=== PATIENT | male | born 1940 | race Caucasian/White ===

== ENCOUNTER 2018-06-15 10:04 | Emergency (ER) | payer OTHER ==
[2018-06-15 10:52] LABS: ADD MAN DIFF? NO
[2018-06-15 10:53] LABS: BASOPHILS % 0.4 % (0.0-2.0); EOSINOPHILS # 0.2 10^3/ul (0.0-0.5); HEMATOCRIT 41.8 % (42.0-52.0); HEMOGLOBIN 14.3 g/dl (14.0-18.0); LYMPHOCYTES # 2.8 10^3/ul (0.8-2.9); MEAN CORPUSCULAR HEMOGLOBIN 30.2 pg (29.0-33.0); MEAN CORPUSCULAR HGB CONC 34.2 g/dl (32.0-37.0); MEAN CORPUSCULAR VOLUME 88.2 fl (82.0-101.0); MEAN PLATELET VOLUME 9.8 fl (7.4-10.4); MONOCYTE # 0.5 10^3/ul (0.3-0.9); MONOCYTES % 6.4 % (0.0-11.0); NEUTROPHIL # 4.8 10^3/ul (1.6-7.5); PLATELET COUNT 208 10^3/UL (140-415); RED BLOOD COUNT 4.74 10^6/ul (4.70-6.10); RED CELL DISTRIBUTION WIDTH 13.1 % (11.5-14.5)
[2018-06-15 10:53] LABS: WHITE BLOOD COUNT 8.3 10^3/ul (4.8-10.8)
[2018-06-15] MEDS: ASPIRIN 81 MG TAB PO (11:33)
[2018-06-15] MEDS: BELLADONNA/PHENOBARBITAL TAB PO (11:33)
[2018-06-15] MEDS: FAMOTIDINE 20 MG TAB PO (11:33)
[2018-06-15] MEDS: SOD CHLORIDE 0.9% 500 ML IV (11:34)
[2018-06-15] MEDS: LIDOCAINE/MYLANTA 40 ML BTL PO (11:35)
[2018-06-15] MEDS: ONDANSETRON 4 MG INJ IV (11:35)
[2018-06-15] MEDS: morphine 4 MG/ML VIAL IV (11:37)
[2018-06-15] MEDS: ENALAPRILAT 1.25 MG INJ IV (11:39)
[2018-06-15 12:05] LABS: ALANINE AMINOTRANSFERASE 22 IU/L (13-69); ALBUMIN 3.8 g/dl (3.3-4.9); ALBUMIN/GLOBULIN RATIO 0.92; ALKALINE PHOSPHATASE 137 IU/L (42-121); ANION GAP 15 (8-16); ASPARTATE AMINO TRANSFERASE 29 IU/L (15-46); BILIRUBIN,INDIRECT 0.4 mg/dl (0-1.1); BILIRUBIN,TOTAL 0.4 mg/dl (0.2-1.3); BLOOD UREA NITROGEN 11 mg/dl (7-20); CALCIUM 9.5 mg/dl (8.4-10.2); CARBON DIOXIDE 29 mmol/L (21-31); CHLORIDE 103 mmol/L (97-110); CREATININE 0.72 mg/dl (0.61-1.24); GLUCOSE 82 mg/dl (70-220); LIPASE 67 U/L (23-300); POTASSIUM 4.1 mmol/L (3.5-5.1); SODIUM 143 mmol/L (135-144); TOTAL PROTEIN 7.9 g/dl (6.1-8.1)
[2018-06-15 12:17] LABS: B-TYPE NATRIURETIC PEPTIDE 277 PG/ML (0-450); TROPONIN-I 0.117 ng/ml (0.000-0.120)
== END 2018-06-15 13:01 | disposition home or self-care (01) ==
LOC: E/R 10:04
DX: R07.9 Chest pain, unspecified (principal); G89.4 Chronic pain syndrome; K29.00 Acute gastritis without bleeding; I10 Essential (primary) hypertension; Z87.891 Personal history of nicotine dependence
CPT/HCPCS: 36415; 71045; 80053; 83690; 83880; 84484; 85025; 93005; 96374; 96375; 99285-25

== ENCOUNTER 2018-09-24 00:58 | Observation (INO) | payer OTHER ==
[2018-09-24] MEDS: ONDANSETRON 4 MG INJ IV (01:30)
[2018-09-24] MEDS: morphine 4 MG/ML VIAL IV (01:30)
[2018-09-24 01:32] LABS: ADD MAN DIFF? NO
[2018-09-24 01:34] LABS: WHITE BLOOD COUNT 8.3 10^3/ul (4.8-10.8)
[2018-09-24 01:34] LABS: BASOPHILS % 0.4 % (0.0-2.0); EOSINOPHILS # 0.2 10^3/ul (0.0-0.5); EOSINOPHILS % 2.5 % (0.0-7.0); HEMATOCRIT 41.8 % (42.0-52.0); HEMOGLOBIN 14.5 g/dl (14.0-18.0); LYMPHOCYTES # 2.3 10^3/ul (0.8-2.9); MEAN CORPUSCULAR HEMOGLOBIN 30.4 pg (29.0-33.0); MEAN CORPUSCULAR HGB CONC 34.7 g/dl (32.0-37.0); MEAN CORPUSCULAR VOLUME 87.6 fl (82.0-101.0); MEAN PLATELET VOLUME 9.6 fl (7.4-10.4); MONOCYTE # 0.6 10^3/ul (0.3-0.9); MONOCYTES % 7.5 % (0.0-11.0); NEUTROPHIL # 5.1 10^3/ul (1.6-7.5); NEUTROPHILS % 61.4 % (39.0-77.0); PLATELET COUNT 180 10^3/UL (140-415); RED BLOOD COUNT 4.77 10^6/ul (4.70-6.10); RED CELL DISTRIBUTION WIDTH 12.6 % (11.5-14.5)
[2018-09-24 02:29] LABS: ALANINE AMINOTRANSFERASE 13 IU/L (13-69); ALBUMIN 4.5 g/dl (3.3-4.9); ALBUMIN/GLOBULIN RATIO 1.25; ALKALINE PHOSPHATASE 136 IU/L (42-121); ANION GAP 14 (5-13); ASPARTATE AMINO TRANSFERASE 25 IU/L (15-46); BILIRUBIN,INDIRECT 0.3 mg/dl (0-1.1); BILIRUBIN,TOTAL 0.3 mg/dl (0.2-1.3); BLOOD UREA NITROGEN 17 mg/dl (7-20); CALCIUM 9.5 mg/dl (8.4-10.2); CARBON DIOXIDE 25 mmol/L (21-31); CHLORIDE 103 mmol/L (97-110); CREATININE 0.91 mg/dl (0.61-1.24); GLUCOSE 138 mg/dl (70-220); POTASSIUM 3.8 mmol/L (3.5-5.1); SODIUM 142 mmol/L (135-144); TOTAL PROTEIN 8.1 g/dl (6.1-8.1)
[2018-09-24 02:41] LABS: B-TYPE NATRIURETIC PEPTIDE 661 PG/ML (0-450); TROPONIN-I 0.039 ng/ml (0.000-0.120)
[2018-09-24] MEDS: FUROSEMIDE 40 MG INJ IV (05:27)
[2018-09-24] MEDS: ASPIRIN 81 MG TAB PO ×2 (05:27→12:37)
[2018-09-24] MEDS ORDERED: NITROGLYCERIN (SL) 0.4 MG TAB SL (05:30)
[2018-09-24] MEDS ORDERED: ONDANSETRON 4 MG INJ IV (05:30)
[2018-09-24] MEDS ORDERED: HYDROCODONE/APAP (5/325) TAB PO (05:30)
[2018-09-24] MEDS ORDERED: hydrALAzine 20 MG INJ IV (05:30)
[2018-09-24] MEDS ORDERED: ACETAMINOPHEN 325 MG TAB PO (05:30)
[2018-09-24] MEDS ORDERED: NACL 0.9% 3 ML SYG IV (05:30)
[2018-09-24 06:50] LABS: CREATINE KINASE 154 IU/L (23-200)
[2018-09-24 07:03] LABS: CK INDEX 6.1
[2018-09-24 07:14] LABS: CK-MB 9.33 ng/ml (0.0-2.4)
[2018-09-24 07:16] LABS: TROPONIN-I 0.993 ng/ml (0.000-0.120)
[2018-09-24] MEDS: ENOXAPARIN 80 MG/0.8 ML SYG SC (08:27)
[2018-09-24] MEDS ORDERED: ENOXAPARIN 40 MG/0.4 ML SYG SC (09:00)
[2018-09-24 11:48] LABS: CREATINE KINASE 189 IU/L (23-200)
[2018-09-24 12:01] LABS: CK INDEX 6.6
[2018-09-24] MEDS: FAMOTIDINE 20 MG TAB PO ×2 (12:39→23:17)
[2018-09-24] MEDS: METOPROLOL 25 MG TAB PO (12:41)
[2018-09-24] MEDS ORDERED: LOSARTAN 50 MG TAB (13:09)
[2018-09-24] MEDS: LOSARTAN 50 MG TAB PO (13:19)
[2018-09-24] MEDS ORDERED: LOSARTAN 25 MG TAB PO (13:30)
[2018-09-24] MEDS ORDERED: HEPARIN 1000 UNITS/ML 10 ML INJ (14:33)
[2018-09-24] MEDS ORDERED: LIDOCAINE 1% (MDV) 20 ML INJ (14:33)
[2018-09-24] MEDS ORDERED: IODIXANOL LOCM 100 ML BTL (14:33)
[2018-09-24] MEDS ORDERED: FENTAnyl 50 MCG/ML VIAL (14:34)
[2018-09-24] MEDS ORDERED: VERAPAMIL 5 MG INJ (14:34)
[2018-09-24] MEDS ORDERED: MIDAZOLAM 1 MG/ML 2 ML INJ (14:34)
[2018-09-24] MEDS ORDERED: NITROGLYCERIN (IC) 100 MCG/ML INJ (14:34)
[2018-09-24] MEDS ORDERED: BIVALIRUDIN 250MG /NS 50 ML 50 ML IVPB ×2 (15:11→15:56)
[2018-09-24] MEDS ORDERED: IOHEXOL 350MG/ML 50 ML BTL (15:13)
[2018-09-24] MEDS ORDERED: TICAGRELOR 90 MG TABLET (15:14)
[2018-09-24] MEDS ORDERED: hydrALAzine 20 MG INJ (15:18)
[2018-09-24] MEDS ORDERED: niCARdipine 25 MG INJ (15:32)
[2018-09-24] MEDS: SOD CHLORIDE 0.9% 1,000 ML IV (16:55)
[2018-09-24] MEDS ORDERED: ATORVASTATIN 40 MG TAB PO (21:00)
[2018-09-24] MEDS ORDERED: ENOXAPARIN 80 MG/0.8 ML SYG SC (21:00)
[2018-09-24] MEDS: ATORVASTATIN 80 MG TAB PO (23:17)
[2018-09-24] MEDS: METOPROLOL 50 MG TAB PO (23:18)
[2018-09-24] MEDS: HYDROCODONE/APAP (5/325) TAB PO (23:18)
[2018-09-24] MEDS: LOSARTAN 25 MG TAB PO (23:19)
[2018-09-24] MEDS: TICAGRELOR 90 MG TABLET PO (23:20)
[2018-09-25 04:56] LABS: ADD MAN DIFF? NO
[2018-09-25 05:00] LABS: BASOPHILS % 0.3 % (0.0-2.0); EOSINOPHILS # 0.2 10^3/ul (0.0-0.5); EOSINOPHILS % 1.9 % (0.0-7.0); HEMATOCRIT 36.8 % (42.0-52.0); HEMOGLOBIN 12.7 g/dl (14.0-18.0); LYMPHOCYTES % 24.9 % (15.0-51.0); MEAN CORPUSCULAR HEMOGLOBIN 30.4 pg (29.0-33.0); MEAN CORPUSCULAR HGB CONC 34.5 g/dl (32.0-37.0); MEAN PLATELET VOLUME 9.8 fl (7.4-10.4); MONOCYTE # 0.6 10^3/ul (0.3-0.9); MONOCYTES % 7.9 % (0.0-11.0); NEUTROPHIL # 5.2 10^3/ul (1.6-7.5); NEUTROPHILS % 64.7 % (39.0-77.0); PLATELET COUNT 178 10^3/UL (140-415); RED BLOOD COUNT 4.18 10^6/ul (4.70-6.10); RED CELL DISTRIBUTION WIDTH 12.4 % (11.5-14.5)
[2018-09-25 05:07] LABS: HEMOGLOBIN A1C 5.5 % (0-5.9)
[2018-09-25 05:26] LABS: ALANINE AMINOTRANSFERASE 17 IU/L (13-69); ALBUMIN 3.6 g/dl (3.3-4.9); ALBUMIN/GLOBULIN RATIO 1.02; ALKALINE PHOSPHATASE 94 IU/L (42-121); ANION GAP 10 (5-13); ASPARTATE AMINO TRANSFERASE 34 IU/L (15-46); BILIRUBIN,INDIRECT 0.5 mg/dl (0-1.1); BILIRUBIN,TOTAL 0.5 mg/dl (0.2-1.3); BLOOD UREA NITROGEN 15 mg/dl (7-20); CALCIUM 9.2 mg/dl (8.4-10.2); CARBON DIOXIDE 26 mmol/L (21-31); CHLORIDE 106 mmol/L (97-110); CHOL/HDL RATIO 6.7 RATIO; CHOLESTEROL 168 mg/dl (100-200); CREATININE 0.82 mg/dl (0.61-1.24); GLUCOSE 104 mg/dl (70-220); HDL CHOLESTEROL 25 mg/dl (31-75); LDL CHOLESTEROL,CALCULATED 114 mg/dl; POTASSIUM 4.2 mmol/L (3.5-5.1); SODIUM 142 mmol/L (135-144); TOTAL PROTEIN 7.1 g/dl (6.1-8.1); TRIGLYCERIDES 145 mg/dl (0-149)
[2018-09-25] MEDS: ASPIRIN (EC) 81 MG TAB PO (09:45)
[2018-09-25] MEDS: FAMOTIDINE 20 MG TAB PO (09:45)
[2018-09-25] MEDS: LOSARTAN 25 MG TAB PO (09:46)
[2018-09-25] MEDS: TICAGRELOR 90 MG TABLET PO (09:47)
[2018-09-25] MEDS: FUROSEMIDE 20 MG INJ IV (12:51)
[2018-09-26] MEDS ORDERED: METOPROLOL (XL) 50 MG TAB PO (09:00)
[2018-09-26] MEDS ORDERED: LOSARTAN 25 MG TAB PO (09:00)
== END 2018-09-25 15:00 | disposition home or self-care (01) ==
LOC: E/R 00:58 → ICU 02:59
DX: I21.4 Non-ST elevation (NSTEMI) myocardial infarction (principal); I25.10 Atherosclerotic heart disease of native coronary artery without angina pectoris; I10 Essential (primary) hypertension; E78.5 Hyperlipidemia, unspecified
CPT/HCPCS: 36415; 71045; 80053; 80061; 82550; 82553; 83036; 83735; 83880; 84443; 84484; 85025; 93005; 93306; 93458; 96374; 96375; 99217; 99285-25

== ENCOUNTER 2018-12-14 12:25 | Inpatient (IN) | payer OTHER ==
[2018-12-14] MEDS: FUROSEMIDE 40 MG INJ IV (15:42)
[2018-12-14] MEDS: ASPIRIN 81 MG TAB PO (15:42)
[2018-12-14] MEDS: NITROGLYCERIN 2% 1 GM OINT PKT TD (15:42)
[2018-12-14 15:52] LABS: ADD MAN DIFF? NO; BASOPHILS % 0.3 % (0.0-2.0); EOSINOPHILS # 0.2 10^3/ul (0.0-0.5); EOSINOPHILS % 2.3 % (0.0-7.0); HEMATOCRIT 42.4 % (42.0-52.0); HEMOGLOBIN 14.5 g/dl (14.0-18.0); LYMPHOCYTES # 3.4 10^3/ul (0.8-2.9); LYMPHOCYTES % 42.1 % (15.0-51.0); MEAN CORPUSCULAR HEMOGLOBIN 29.7 pg (29.0-33.0); MEAN CORPUSCULAR HGB CONC 34.2 g/dl (32.0-37.0); MEAN CORPUSCULAR VOLUME 86.9 fl (82.0-101.0); MEAN PLATELET VOLUME 9.2 fl (7.4-10.4); MONOCYTE # 0.6 10^3/ul (0.3-0.9); MONOCYTES % 7.8 % (0.0-11.0); NEUTROPHIL # 3.8 10^3/ul (1.6-7.5); NEUTROPHILS % 47.2 % (39.0-77.0); PLATELET COUNT 238 10^3/UL (140-415); RED BLOOD COUNT 4.88 10^6/ul (4.70-6.10); RED CELL DISTRIBUTION WIDTH 12.9 % (11.5-14.5)
[2018-12-14 16:11] LABS: ANION GAP 11 (5-13); BLOOD UREA NITROGEN 12 mg/dl (7-20); CALCIUM 9.4 mg/dl (8.4-10.2); CARBON DIOXIDE 26 mmol/L (21-31); CHLORIDE 106 mmol/L (97-110); GLUCOSE 90 mg/dl (70-220); POTASSIUM 3.7 mmol/L (3.5-5.1); SODIUM 143 mmol/L (135-144)
[2018-12-14 16:23] LABS: B-TYPE NATRIURETIC PEPTIDE 328 PG/ML (0-450); TROPONIN-I < 0.012 ng/ml (0.000-0.120)
[2018-12-14] MEDS ORDERED: ACETAMINOPHEN 325 MG TAB PO (18:00)
[2018-12-14] MEDS ORDERED: ONDANSETRON 4 MG INJ IV ×2 (18:00→18:30)
[2018-12-14 18:29] LABS: INR 1.15; PARTIAL THROMBOPLASTIN TIME 31.4 Sec (23.0-35.0); PROTIME 14.8 Sec (11.9-14.9); PT RATIO 1.2
[2018-12-14] MEDS ORDERED: hydrALAzine 20 MG INJ IV (18:30)
[2018-12-14] MEDS ORDERED: MAGNESIUM HYDROXIDE 30ML CUP PO (18:30)
[2018-12-14] MEDS ORDERED: ALBUTEROL/IPRATROPIUM (NEB) 3 ML AMP HHN (18:30)
[2018-12-14] MEDS ORDERED: NITROGLYCERIN (SL) 0.4 MG TAB SL (18:30)
[2018-12-14] MEDS ORDERED: LORAZEPAM 2 MG INJ IV (18:30)
[2018-12-14] MEDS ORDERED: HYDROCODONE/APAP (5/325) TAB PO (18:30)
[2018-12-14] MEDS ORDERED: NACL 0.9% 3 ML SYG IV (18:30)
[2018-12-14] MEDS ORDERED: morphine 2 MG INJ IV (18:30)
[2018-12-14] MEDS ORDERED: DOCUSATE SODIUM 100 MG CAP PO (18:30)
[2018-12-14 18:49] LABS: FREE T4 (FREE THYROXINE) 1.02 ng/dl (0.78-2.44)
[2018-12-14] MEDS ORDERED: TICAGRELOR 90 MG TABLET PO (21:00)
[2018-12-14 22:01] LABS: CK-MB 0.49 ng/ml (0.0-2.4); TROPONIN-I < 0.012 ng/ml (0.000-0.120)
[2018-12-14 22:22] LABS: CK INDEX 0.6; CREATINE KINASE 79 IU/L (23-200)
[2018-12-15] MEDS: ACETAMINOPHEN 325 MG TAB PO ×3 (00:13→20:52)
[2018-12-15] MEDS: HEPARIN 5,000 UNIT/1 ML VIAL SC ×3 (00:18→20:59)
[2018-12-15] MEDS: TICAGRELOR 90 MG TABLET PO ×3 (00:18→20:59)
[2018-12-15 03:31] LABS: CREATINE KINASE 74 IU/L (23-200)
[2018-12-15 03:42] LABS: CK INDEX 0.6; CK-MB 0.43 ng/ml (0.0-2.4); TROPONIN-I < 0.012 ng/ml (0.000-0.120)
[2018-12-15] MEDS: ASPIRIN 81 MG TAB PO (08:41)
[2018-12-15] MEDS: FUROSEMIDE 40 MG INJ IV (08:41)
[2018-12-15 08:50] LABS: ADD MAN DIFF? NO
[2018-12-15 08:59] LABS: BASOPHILS % 0.3 % (0.0-2.0); EOSINOPHILS # 0.1 10^3/ul (0.0-0.5); EOSINOPHILS % 1.3 % (0.0-7.0); LYMPHOCYTES # 2.7 10^3/ul (0.8-2.9); LYMPHOCYTES % 29.8 % (15.0-51.0); MEAN CORPUSCULAR HEMOGLOBIN 29.6 pg (29.0-33.0); MEAN CORPUSCULAR HGB CONC 34.1 g/dl (32.0-37.0); MEAN CORPUSCULAR VOLUME 86.8 fl (82.0-101.0); MEAN PLATELET VOLUME 9.3 fl (7.4-10.4); MONOCYTE # 0.6 10^3/ul (0.3-0.9); MONOCYTES % 6.2 % (0.0-11.0); NEUTROPHIL # 5.6 10^3/ul (1.6-7.5); NEUTROPHILS % 62.1 % (39.0-77.0); PLATELET COUNT 245 10^3/UL (140-415); RED BLOOD COUNT 5.07 10^6/ul (4.70-6.10); RED CELL DISTRIBUTION WIDTH 13.1 % (11.5-14.5)
[2018-12-15] MEDS ORDERED: ASPIRIN (EC) 325 MG TAB PO (09:00)
[2018-12-15 09:27] LABS: ANION GAP 14 (5-13); BLOOD UREA NITROGEN 17 mg/dl (7-20); CALCIUM 9.5 mg/dl (8.4-10.2); CARBON DIOXIDE 27 mmol/L (21-31); CHLORIDE 104 mmol/L (97-110); CREATININE 0.74 mg/dl (0.61-1.24); GLUCOSE 104 mg/dl (70-220); POTASSIUM 3.6 mmol/L (3.5-5.1); SODIUM 145 mmol/L (135-144)
[2018-12-15 09:30] LABS: CHOLESTEROL 188 mg/dl (100-200)
[2018-12-15 09:30] LABS: CHOL/HDL RATIO 6.7 RATIO; HDL CHOLESTEROL 28 mg/dl (31-75); LDL CHOLESTEROL,CALCULATED 115 mg/dl; TRIGLYCERIDES 227 mg/dl (0-149)
[2018-12-15 09:45] LABS: HEMOGLOBIN A1C 5.6 % (0-5.9)
[2018-12-15] MEDS: LOSARTAN 25 MG TAB PO (15:20)
[2018-12-15] MEDS: METOPROLOL (XL) 50 MG TAB PO (15:21)
[2018-12-15] MEDS: ATORVASTATIN 40 MG TAB PO (20:53)
[2018-12-16 07:49] LABS: ADD MAN DIFF? NO
[2018-12-16 07:52] LABS: BASOPHILS % 0.3 % (0.0-2.0); EOSINOPHILS # 0.2 10^3/ul (0.0-0.5); EOSINOPHILS % 2.1 % (0.0-7.0); HEMOGLOBIN 15.7 g/dl (14.0-18.0); LYMPHOCYTES % 31.2 % (15.0-51.0); MEAN CORPUSCULAR HEMOGLOBIN 29.9 pg (29.0-33.0); MEAN CORPUSCULAR HGB CONC 34.1 g/dl (32.0-37.0); MEAN CORPUSCULAR VOLUME 87.6 fl (82.0-101.0); MEAN PLATELET VOLUME 9.4 fl (7.4-10.4); MONOCYTE # 0.6 10^3/ul (0.3-0.9); MONOCYTES % 6.2 % (0.0-11.0); NEUTROPHIL # 5.8 10^3/ul (1.6-7.5); NEUTROPHILS % 60.1 % (39.0-77.0); PLATELET COUNT 259 10^3/UL (140-415); RED BLOOD COUNT 5.25 10^6/ul (4.70-6.10); RED CELL DISTRIBUTION WIDTH 13.2 % (11.5-14.5)
[2018-12-16 07:52] LABS: WHITE BLOOD COUNT 9.7 10^3/ul (4.8-10.8)
[2018-12-16 08:13] LABS: ANION GAP 9 (5-13); BLOOD UREA NITROGEN 20 mg/dl (7-20); CALCIUM 9.7 mg/dl (8.4-10.2); CARBON DIOXIDE 28 mmol/L (21-31); CHLORIDE 105 mmol/L (97-110); CREATININE 0.88 mg/dl (0.61-1.24); GLUCOSE 116 mg/dl (70-220); POTASSIUM 3.9 mmol/L (3.5-5.1); SODIUM 142 mmol/L (135-144)
[2018-12-16] MEDS: LOSARTAN 25 MG TAB PO (08:48)
[2018-12-16] MEDS: TICAGRELOR 90 MG TABLET PO (08:49)
[2018-12-16] MEDS: FUROSEMIDE 40 MG TAB PO (08:49)
[2018-12-16] MEDS: ASPIRIN 81 MG TAB PO (08:49)
[2018-12-16] MEDS: METOPROLOL (XL) 50 MG TAB PO (08:49)
[2018-12-16] MEDS: HEPARIN 5,000 UNIT/1 ML VIAL SC (08:50)
== END 2018-12-16 18:02 | disposition home or self-care (01) | DRG 304 ==
LOC: E/R 12:25 → TEL 17:45
DX: I16.0 Hypertensive urgency (principal); I50.33 Acute on chronic diastolic (congestive) heart failure; I11.0 Hypertensive heart disease with heart failure; R07.9 Chest pain, unspecified; Z95.5 Presence of coronary angioplasty implant and graft; I25.2 Old myocardial infarction; E78.00 Pure hypercholesterolemia, unspecified
CPT/HCPCS: 36415; 71045; 80048; 80061; 82550; 82553; 83036; 83735; 83880; 84100; 84439; 84443; 84484; 85025; 85610; 85730; 92610; 93005; 96374; 97161; 97166; 99285-25